=== PATIENT | male | born 1980 | race Caucasian/White ===

== ENCOUNTER 2023-12-13 10:02 | Outpatient (REF) | payer OTHER, SELFPAY | END 2023-12-13 10:03 | disposition home or self-care (01) | LOC: HO.BBR 10:02 | PROVIDERS: PCP Student in an Organized Health Care Education/Training Program; Visit Provider Internal Medicine Hematology & Oncology | DX: Z13.89 Encounter for screening for other disorder (principal) ==

== ENCOUNTER 2024-01-18 10:07 | Outpatient (REF) | payer OTHER, SELFPAY | END 2024-01-18 10:08 | disposition home or self-care (01) | LOC: HO.BBR 10:07 | PROVIDERS: PCP Student in an Organized Health Care Education/Training Program; Visit Provider Internal Medicine Hematology & Oncology | DX: Z13.89 Encounter for screening for other disorder (principal) ==

== ENCOUNTER 2024-02-16 09:04 | Outpatient (REF) | payer OTHER, SELFPAY | END 2024-02-16 09:05 | disposition home or self-care (01) | LOC: HO.BBR 09:04 | PROVIDERS: PCP Student in an Organized Health Care Education/Training Program; Visit Provider Internal Medicine Hematology & Oncology | DX: Z13.89 Encounter for screening for other disorder (principal) ==

== ENCOUNTER 2024-03-17 10:14 | Outpatient (REF) | payer OTHER, SELFPAY | END 2024-03-17 10:15 | disposition home or self-care (01) | LOC: HO.BBR 10:14 | PROVIDERS: PCP Student in an Organized Health Care Education/Training Program; Visit Provider Internal Medicine Hematology & Oncology | DX: Z13.89 Encounter for screening for other disorder (principal) ==

== ENCOUNTER 2024-04-10 10:55 | Outpatient (REF) | payer OTHER, SELFPAY | END 2024-04-10 10:56 | disposition home or self-care (01) | LOC: HO.BBR 10:55 | PROVIDERS: PCP Student in an Organized Health Care Education/Training Program; Visit Provider Internal Medicine Hematology & Oncology | DX: Z13.89 Encounter for screening for other disorder (principal) ==

== ENCOUNTER 2024-12-05 15:35 | Outpatient (REF) | payer OTHER, SELFPAY | END 2024-12-05 15:36 | disposition home or self-care (01) | LOC: HO.BBR 15:35 | PROVIDERS: PCP Student in an Organized Health Care Education/Training Program; Visit Provider Internal Medicine Hematology & Oncology | DX: Z13.89 Encounter for screening for other disorder (principal) ==